=== PATIENT | male | born 1970 | race Caucasian/White ===

== ENCOUNTER 2020-12-18 13:39 | Outpatient (CLI) | payer OTHER | END 2020-12-18 13:51 | disposition home or self-care (01) | LOC: RAD 13:39 | PROVIDERS: ATTEND Orthopaedic Surgery | DX: M25.561 Pain in right knee (principal); M25.562 Pain in left knee ==

== ENCOUNTER 2021-01-08 13:15 | Outpatient (CLI) | payer OTHER | END 2021-01-08 13:27 | disposition home or self-care (01) | LOC: RAD 13:15 | PROVIDERS: ATTEND Orthopaedic Surgery | DX: M25.561 Pain in right knee (principal); M25.562 Pain in left knee ==